=== PATIENT | female | born 1960 | race Two or more races ===

== ENCOUNTER 2018-04-19 18:35 | Inpatient (IN) | payer BC, OTHER ==
[~2018-04-19] VITALS: Ht 165.1 cm; Wt 64.4 kg
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
[2018-04-19 18:51] LABS: BASOPHILS % (AUTO) 0.7 % (0.0-2.0); EOSINOPHILS % (AUTO) 1.9 % (0.0-6.0); HEMATOCRIT 39 % (33-45); HEMOGLOBIN 13.1 g/dL (11.5-14.8); LYMPHOCYTES # (AUTO) 0.3 /CMM (0.8-4.8); LYMPHOCYTES % (AUTO) 9.9 % (20.0-44.0); MEAN CORPUSCULAR HGB CONC 34 g/dl (31.0-36.0); MEAN CORPUSCULAR VOLUME 92 fL (82-100); MONOCYTES # (AUTO) 0.3 /CMM (0.1-1.30); MONOCYTES % (AUTO) 10.2 % (2.0-12.0); NEUTROPHILS # (AUTO) 2.6 /CMM (1.8-8.9); NEUTROPHILS % (AUTO) 77.3 % (43.0-81.0); PLATELET COUNT (AUTO) 82 /CMM (150-450); RED BLOOD CELL COUNT(AUTO) 4.22 MIL/uL (4.0-5.2); WHITE BLOOD COUNT (AUTO) 3.3 K/uL (4.3-11.0)
[2018-04-19] MEDS ORDERED: IV NS 0.9% 1,000 ML BAG IV ONE (19:00)
[2018-04-19] MEDS: LEVETIRACETAM (500MG) 1,000 MG in IV NS 0.9% 100 ML IV SCH (19:02)
[2018-04-19 19:07] LABS: ALANINE AMINOTRANSFERASE 112 U/L (12-78); ALBUMIN 3.1 g/dL (3.4-5.0); ALCOHOL, BLOOD < 3 mg/dL (0-0); ALKALINE PHOSPHATASE 200 U/L (46-116); ASPARTATE AMINOTRANSFERASE 181 U/L (15-37); BILIRUBIN,DIRECT 0.7 mg/dL (0.0-0.2); BILIRUBIN,TOTAL 1.7 mg/dL (0.2-1.0); CALCIUM, SERUM 9.3 mg/dL (8.5-10.1); CARBON DIOXIDE 25 mmol/L (21-32); CHLORIDE 109 mmol/L (98-107); CREATININE 0.7 mg/dL (0.6-1.3); GLUCOSE 120 mg/dL (74-106); POTASSIUM 3.7 mmol/L (3.5-5.1); SODIUM SERUM 143 mmol/L (136-145); TOTAL PROTEIN, SERUM 7.3 g/dL (6.4-8.2); UREA NITROGEN, BLOOD 6 mg/dL (7-18)
--- NOTE | 2018-04-19 19:17 | NUR ---
PT'S BOYFRIEND, SANDEEP, CAN BE REACHED AT [phone] PT'S SON, TOMY, CAN BE REACHED AT [phone]
--- NOTE | 2018-04-19 19:17 | NUR ---
ASSUMED CARE OF PT.
[2018-04-19 19:19] LABS: EOSINOPHILS % (MANUAL) 4 % (0-4); LYMPHOCYTES % (MANUAL) 6 % (16-48); MONOCYTES % (MANUAL) 16 % (0-11.0); NEUTROPHILS % (MANUAL) 74 (42-76)
--- NOTE | 2018-04-19 19:21 | NUR ---
PATIENT RETURNED FROM CT SCAN. NO SEIZURE ACTIVITY NOTED AT THIS TIME. MORE ALERT. OPENING EYES INDEPENDENTLY. VSS.
--- NOTE | 2018-04-19 19:22 | NUR ---
CALLED PT'S BOYFRIEND, SANDEEP. SANDEEP STATED THAT THE PT LIVES AT A RECOVERY HOUSE AT [place]. [address], [place], [place]. SANDEEP HAD A NUMBER; [phone] FOR THE FACILITY. HE DOES NOT KNOW OF ANY ALLERGIES AND STATED THAT SHE TAKES A MED FOR SLEEP AND ZOLOFT. HE'S NOT SURE OF ANY OTHER MEDICATIONS.
--- NOTE | 2018-04-19 19:35 | NUR ---
CARE ENDORSED TO MATT FOR LISBETH.
--- NOTE | 2018-04-19 19:40 | NUR ---
CALLING [facility] AT [phone]. NO ANSWER AT THIS NUMBER.
[2018-04-19] MEDS ORDERED: ZOLOFT (19:42)
[2018-04-19 19:44] LABS: ACETAMINOPHEN < 2 ug/ml (10-30); SALICYLATE < 2.0 mg/dL (2.8-20.0)
--- NOTE | 2018-04-19 20:18 | NUR ---
LUNA SEGURA TO CALL BACK.
--- NOTE | 2018-04-19 20:18 | NUR ---
CALLING REPORT TO LUNA SEGURA.
--- NOTE | 2018-04-19 20:35 | NUR ---
REPORT GIVEN TO LUNA SEGURA
[2018-04-19 20:58] VITALS: BP 101/63
--- NOTE | 2018-04-19 22:20 | NUR ---
DEE RN NOTES [facility] INSTRUCTOR AT BEDSIDE FOR EVALUATION. LANCE, PEST CONTROL PILOT AT [facility] ALSO AT BEDSIDE, WHO WAS ABLE TO CALL THE PATIENT'S SON CELESTE. HISTORY OBTAINED ABLE, LIMITED PATIENT'S SON DOES NOT KNOW COMPLETE HISTORY. LANCE INSTRUCTED TO OBTAIN COMPLETE LIST OF MEDICATION WHEN ABLE. PER LANCE, HE WILL TRY TO GET THE LIST SOMETIME TONIGHT.
[2018-04-19] MEDS ORDERED: ZOLPIDEM TARTRATE 5 MG TABLET PO PRN (22:30)
[2018-04-19] MEDS: ONDANSETRON HCL/PF 4 MG/2 ML VIAL IVP PRN (22:30)
[2018-04-19] MEDS ORDERED: Z GUARD REMEDY 2 OZ OINT TP PRN (22:30)
[2018-04-19] MEDS ORDERED: MAGNESIUM HYDROXIDE 30 ML UDC PO PRN (22:30)
[2018-04-19] MEDS: IV NS 0.9% 1,000 ML IV PRN (22:31)
--- NOTE | 2018-04-19 22:48 | NUR ---
[facility] - [facility] (DEALER CARD ROOM) [phone]
[2018-04-20] VITALS (9 sets, daily range): BP systolic 81–127; BP diastolic 42–73
--- NOTE | 2018-04-20 00:35 | NUR ---
DEE RN NOTES PATIENT WITH COMPLAINT OF 10/10, THROBBING HEADACHE, ASSOCIATED WITH NAUSEA. RAJWINDER [facility] MEDICAL RECORD LIBRARIANS TEACHER MADE AWARE, WITH ORDER FOR MORPHINE 2MG IVP Q4H PRN PAIN. WILL ADMINISTER MEDICATION AND MONITOR CLOSELY
[2018-04-20] MEDS ORDERED: MORPHINE SULFATE INJ 4 MG/ML DISP.SYRIN ONE (00:44)
[2018-04-20] MEDS ORDERED: ONDANSETRON HCL/PF 4 MG/2 ML VIAL IV PRN (01:00)
[2018-04-20] MEDS ORDERED: MORPHINE SULFATE INJ 4 MG/ML DISP.SYRIN IVP PRN (01:00)
--- NOTE | 2018-04-20 04:05 | NUR ---
DEE RN NOTES PATIENT'S BP 82/45, RECHECK 84/51. PATIENT PLACED FLAT IN BED. RAJWINDER BARBA ANNEALING FURNACE TENDER MADE AWARE OF BP READING, WITH ORDER FOR 500ML NS BOLUS X1 NOW. WILL BOLUS ORDERED AND MONITOR CLOSELY.
[2018-04-20] MEDS ORDERED: IV NS 0.9% 500 ML IV ONE (04:30)
--- NOTE | 2018-04-20 04:51 | NUR ---
DEE RN NOTES AFTER 50ML NS BOLUS, BP NOW 98/61. PATIENT EXHIBITS SAME BASELINE MENTAL STATUS, SLIGHTLY IMPROVING
[2018-04-20] MEDS: IV NS 0.9% 1,000 ML IV PRN ×2 (07:03→23:58)
[2018-04-20 07:33] LABS: BASOPHILS % (AUTO) 0.3 % (0.0-2.0); EOSINOPHILS % (AUTO) 0.2 % (0.0-6.0); HEMATOCRIT 36 % (33-45); HEMOGLOBIN 12.2 g/dL (11.5-14.8); LYMPHOCYTES # (AUTO) 0.6 /CMM (0.8-4.8); LYMPHOCYTES % (AUTO) 10.5 % (20.0-44.0); MEAN CORPUSCULAR HGB CONC 34 g/dl (31.0-36.0); MEAN CORPUSCULAR VOLUME 92 fL (82-100); MONOCYTES # (AUTO) 0.5 /CMM (0.1-1.30); MONOCYTES % (AUTO) 8.7 % (2.0-12.0); NEUTROPHILS # (AUTO) 4.2 /CMM (1.8-8.9); NEUTROPHILS % (AUTO) 80.3 % (43.0-81.0); PLATELET COUNT (AUTO) 74 /CMM (150-450); RED BLOOD CELL COUNT(AUTO) 3.95 MIL/uL (4.0-5.2); WHITE BLOOD COUNT (AUTO) 5.2 K/uL (4.3-11.0)
--- NOTE | 2018-04-20 07:35 | NUR ---
DEE RN AM NOTES PT LYING IN BED, DROWSY WITH NC AT 2L, O2 SAT 100%, PT WAS MOANING AND ASKED IF SHE WAS IN ANY PAIN, BUT UNABLE TO VERBALIZE WHERE THE PAIN IS BUT WAS POINTING TO HER HEAD, PT PAIN MEDICATION WAS CAREFULLY GIVEN B/C OF A SUDDEN DROP ON BP PER SENIOR ENLISTED ADVISOR RN REPORT, RR EVEN AND NONLABORED, SR WITH OCCASIONAL PVCs WITH HR 62, IV RH SALINE LOCK 18G, SITE CLEAR, WITH NS RUNNING AT 100ML/HR ORDERED, LEFT AC 18G SALINE LOCK, CHECKED AND FLUSHED, SITE CLEAR, SKIN INTACT, BED LOCKED AND LOW, SIDE RAILS UP AND PADDED, SEIZURE PRECAUTION, WILL MONITOR CLOSELY FOR S/S OF SEIZURE.
[2018-04-20 07:41] LABS: CALCIUM, SERUM 8.2 mg/dL (8.5-10.1); CREATININE 0.5 mg/dL (0.6-1.3); MAGNESIUM 1.4 mg/dL (1.8-2.4); PHOSPHORUS 3.4 mg/dL (2.5-4.9); POTASSIUM 3.6 mmol/L (3.5-5.1)
--- NOTE | 2018-04-20 07:53 | NUR ---
RN NOTE: CALLED AND SPOKE WITH HCIRAG FROM THE PHARMACY AND INFORMED HER ABOUT THE PATIENT'S KEPPRA IV @ 0700. PER CHIRAG, SHE WAS STILL PREPARING THE MEDICATION. AWAITING FOR THE PHARMACY DELIVERY.
[2018-04-20] MEDS: LEVETIRACETAM (500MG) 1,000 MG in IV NS 0.9% 100 ML IV SCH (08:17)
[2018-04-20 08:19] LABS: BAND % (MANUAL) 2 % (0.0-5.0); EOSINOPHILS % (MANUAL) 1 % (0-4); LYMPHOCYTES % (MANUAL) 14 % (16-48); MONOCYTES % (MANUAL) 9 % (0-11.0); NEUTROPHILS % (MANUAL) 74 (42-76)
[2018-04-20] MEDS: THIAMINE HCL 100 MG TABLET PO SCH (08:19)
[2018-04-20] MEDS: Magnesium 1GM/D5W 100ML PREMIX 100 ML IV SCH ×4 (10:34→13:37)
[2018-04-20] MEDS: ACETAMINOPHEN 325 MG TABLET PO PRN (10:46)
[2018-04-20] MEDS: ONDANSETRON HCL/PF 4 MG/2 ML VIAL IVP PRN (11:03)
--- NOTE | 2018-04-20 11:17 | NUR ---
RN NOTE PT [id number], ZOFRAN PER MD ORDER GIVEN, WILL CONTINUE TO MONITOR.
[2018-04-20] MEDS ORDERED: FOLI1TAB16 PO (13:34)
[2018-04-20] MEDS ORDERED: SERT50TA PO (13:34)
[2018-04-20] MEDS ORDERED: THIA100T74 PO (13:34)
[2018-04-20] MEDS ORDERED: RIFA550T PO (13:34)
[2018-04-20] MEDS ORDERED: ONDA4TAB5 PO (13:34)
[2018-04-20] MEDS ORDERED: LEVE500T9 PO (13:34)
[2018-04-20] MEDS ORDERED: TRAZ-182 PO (13:34)
--- NOTE | 2018-04-20 14:00 | NUR ---
DEE RN NOTES PT FAMILY AT BEDSIDE, ASKED PT SON, CELESTE, FOR THE CORRECT NAME AND DATE OF OF THE PT, CALLED AND NOTIFIED ADMISSION COORDINATOR TO MAKE THE NECESSARY CHANGES.
[2018-04-20] MEDS: HYDROCODONE/APAP 5/325MG 1 EACH TABLET PO PRN (14:44)
[2018-04-20] MEDS ORDERED: HYDROMORPHONE INJ 0.5 MG/0.5 ML SYRINGE IV PRN (15:00)
[2018-04-20] MEDS ORDERED: LORAZEPAM INJ 2 MG/ML VIAL IV PRN (15:00)
--- NOTE | 2018-04-20 15:52 | NUR ---
RN NOTE: CALLED AND SPOKE WITH NILAY FROM THE OFFICE OF DR. GUERRERO (NEUROLOGIST) AND MADE HIM AWARE OF THE CONSULTATION BY DAVID GARZA NP TO SEE THE PATIENT.
--- NOTE | 2018-04-20 19:30 | NUR ---
RECEIVED VERBAL ORDERS FROM DR. GUERRERO TO CHANGE PT KEPPRA IV 1000MG BID TO KEPPRA 500MG PO BID. READ BACK ORDERS PERFORMED AND ORDER PLACED INTO PT EMAR.
--- NOTE | 2018-04-20 19:51 | NUR ---
DEE RN PM NOTES ENDORSED PT TO CREATIVE PRODUCER NURSE FOR CONTINUITY OF CARE, PT HAD NO SEIZURE EPISODE DURING THE SHIFT.
[2018-04-20] MEDS: LEVETIRACETAM (250 MG) 250 MG TABLET PO SCH (21:13)
[2018-04-21] VITALS (7 sets, daily range): BP systolic 91–108; BP diastolic 49–77
--- NOTE | 2018-04-21 06:32 | NUR ---
PT REMAINS IN NO ACUTE DISTRESS IN BED. PT DID NOT HAVE ANY SIGNIFICANT CHANGE IN CONDITION DURING SHIFT. ALL NEEDS MET, ALL ORDERS GERSON OUT. WILL ENDORSE CARE TO AM RN FOR CONTINUITY OF CARE.
[2018-04-21 07:05] LABS: ALBUMIN 2.5 g/dL (3.4-5.0); CALCIUM, SERUM 8.1 mg/dL (8.5-10.1); CREATININE 0.5 mg/dL (0.6-1.3); MAGNESIUM 1.7 mg/dL (1.8-2.4); PHOSPHORUS 2.4 mg/dL (2.5-4.9); POTASSIUM 3.3 mmol/L (3.5-5.1)
[2018-04-21 07:06] LABS: BASOPHILS % (AUTO) 0.4 % (0.0-2.0); EOSINOPHILS % (AUTO) 1.3 % (0.0-6.0); HEMATOCRIT 39 % (33-45); LYMPHOCYTES # (AUTO) 0.5 /CMM (0.8-4.8); LYMPHOCYTES % (AUTO) 12.4 % (20.0-44.0); MEAN CORPUSCULAR HGB CONC 34 g/dl (31.0-36.0); MEAN CORPUSCULAR VOLUME 92 fL (82-100); MONOCYTES # (AUTO) 0.4 /CMM (0.1-1.30); MONOCYTES % (AUTO) 10.5 % (2.0-12.0); NEUTROPHILS # (AUTO) 3.1 /CMM (1.8-8.9); NEUTROPHILS % (AUTO) 75.4 % (43.0-81.0); PLATELET COUNT (AUTO) 66 /CMM (150-450); RED BLOOD CELL COUNT(AUTO) 4.24 MIL/uL (4.0-5.2); WHITE BLOOD COUNT (AUTO) 4.1 K/uL (4.3-11.0)
[2018-04-21] MEDS: FOLIC ACID 1 MG TABLET PO SCH (08:19)
[2018-04-21] MEDS: THIAMINE HCL 100 MG TABLET PO SCH (08:19)
[2018-04-21] MEDS: LEVETIRACETAM (250 MG) 250 MG TABLET PO SCH ×2 (08:19→21:54)
[2018-04-21 08:29] LABS: EOSINOPHILS % (MANUAL) 1 % (0-4); LYMPHOCYTES % (MANUAL) 8 % (16-48); MONOCYTES % (MANUAL) 5 % (0-11.0); NEUTROPHILS % (MANUAL) 86 (42-76)
--- NOTE | 2018-04-21 09:15 | NUR ---
received pt from night nurse, alert, follows commands, confused at times, SR, on 2L 02 sat well, lungs clear, no edema, diaper on, no BM, tolerates diet, v/s stable, no pain, pt turns and repositions by herself.
[2018-04-21] MEDS ORDERED: POTASSIUM CHLORIDE 20 MEQ TAB.PRT.SR PO SCH (11:00)
[2018-04-21] MEDS: Magnesium 1GM/D5W 100ML PREMIX 100 ML IV SCH ×2 (11:06→12:12)
[2018-04-21] MEDS ORDERED: K PHOS NEUTRAL 250 MG TABLET PO ONE (16:00)
--- NOTE | 2018-04-21 16:32 | NUR ---
pt resting in the bed, restless, anxious, very confused, getting out of bed, SR, v/s stable, no pain, pt cleaned and changed.
[2018-04-21] MEDS: risperiDONE 1 MG TABLET PO SCH (21:53)
[2018-04-21] MEDS: HYDROCODONE/APAP 5/325MG 1 EACH TABLET PO PRN (22:15)
[2018-04-22] VITALS: BP 112/69
[2018-04-22 04:00] VITALS: BP 106/63
[2018-04-22 06:32] LABS: CALCIUM, SERUM 8.6 mg/dL (8.5-10.1); CREATININE 0.4 mg/dL (0.6-1.3); MAGNESIUM 1.6 mg/dL (1.8-2.4); POTASSIUM 3.9 mmol/L (3.5-5.1)
[2018-04-22 08:00] VITALS: BP 109/55
[2018-04-22] MEDS: THIAMINE HCL 100 MG TABLET PO SCH (08:23)
[2018-04-22] MEDS: risperiDONE 1 MG TABLET PO SCH ×2 (08:23→22:05)
[2018-04-22] MEDS: LEVETIRACETAM (250 MG) 250 MG TABLET PO SCH ×2 (08:23→22:05)
[2018-04-22] MEDS: FOLIC ACID 1 MG TABLET PO SCH (08:24)
[2018-04-22 12:00] VITALS: BP 98/65
[2018-04-22] MEDS: ACETAMINOPHEN 325 MG TABLET PO PRN (12:52)
[2018-04-22] MEDS: Magnesium 1GM/D5W 100ML PREMIX 100 ML IV SCH ×2 (13:57→15:18)
[2018-04-22] MEDS ORDERED: Thiamine 100 MG in IV D5W 50 ML IV SCH (14:00)
[2018-04-22] MEDS ORDERED: THIAMINE HCL 100 MG TABLET PO ONE (14:00)
[2018-04-22 16:00] VITALS: BP 93/53
--- NOTE | 2018-04-22 18:02 | NUR ---
PT SEEN BY NEUROLOGIST
--- NOTE | 2018-04-22 19:11 | NUR ---
PT REMAINS IN NO ACUTE DISTRESS IN BED. PT MORE ALERT AND ABLE TO FOLLOW DIRECTIONS, HAS DIF. SPEAKING . ALL NEEDS MET, ALL ORDERS CARRIED OUT.SAFETY PRECAUTIONS IN PLACE, CALL LIGHT WITHIN REACH
[2018-04-22 20:00] VITALS: BP 100/65
[2018-04-22] MEDS ORDERED: LORAZEPAM 0.5 MG TABLET PO ONE (20:00)
--- NOTE | 2018-04-22 20:00 | NUR ---
RN NOTES seen and examined by Dr. Preciado. updated with patient's behavior. NNO at this time.
[2018-04-23] VITALS: BP 100/62
[2018-04-23 04:00] VITALS: BP 96/63
--- NOTE | 2018-04-23 06:54 | NUR ---
RN CLOSING NOTES Patient with no acute distress observed overnight. patient is observed to withdrawn. no slurring of speech noted, however patient does not engage with conversations and only responds with "yes/no" and dysarthria appreciated. kept patient clean and dry. assisted with ADLs as needed. encouraged with increased PO intake as tolerated. seizure precautions at all times, side rails padded. needs anticipated and met. call light in reach. will endorse accordingly.
--- NOTE | 2018-04-23 07:49 | NUR ---
WINDMILL MECHANIC NOTES RECEIVED PT FROM NOC SHIFT RN. PT ON BED AWAKE AND ALERT. PT ON TELE MONITOR SR. REMAINS IN NO ACUTE DISTRESS IN BED. NO COMPLAINS OF PAIN. BED ON LOWEST POSITION. CALL LIGHT WITHIN REACH. WILL MONITOR CLOSELY.
[2018-04-23 07:50] LABS: CALCIUM, SERUM 8.1 mg/dL (8.5-10.1); CREATININE 0.5 mg/dL (0.6-1.3); MAGNESIUM 1.6 mg/dL (1.8-2.4)
[2018-04-23 08:00] VITALS: BP 114/60
[2018-04-23] MEDS: risperiDONE 1 MG TABLET PO SCH (08:34)
[2018-04-23] MEDS: FOLIC ACID 1 MG TABLET PO SCH (08:35)
[2018-04-23] MEDS: LEVETIRACETAM (250 MG) 250 MG TABLET PO SCH (08:35)
[2018-04-23] MEDS: THIAMINE HCL 100 MG TABLET PO SCH (08:36)
[2018-04-23] MEDS: Magnesium 1GM/D5W 100ML PREMIX 100 ML IV SCH ×2 (10:21→11:28)
[2018-04-23] MEDS: POTASSIUM CHLORIDE 20 MEQ TAB.PRT.SR PO SCH ×3 (10:21→12:32)
--- NOTE | 2018-04-23 11:00 | NUR ---
CLERK TELEVISION PRODUCTION NOTES PT AGITATED AND RESTLESS. AMBULATED TO THE BATHROOM BY HERSELF. CHANGED HER CLOTHES. REMOVED HER TELE MONITOR. WAS ABLE TO CALM HER DOWN FOR NOW. BED LOCKED AND ON LOWEST POSITION. CALL LIGHT WITHIN REACH. WILL MONITOR CLOSELY
--- NOTE | 2018-04-23 11:07 | NUR ---
DOOR PANELER NOTE PT SEEN BY PHYSICAL THERAPIST. Addendum: 04/23/18 at 1118 by FER CORDOVA RN PT AMBULATED WELL WITH THE WALKER. NO COMPLAINS OF PAIN OR SOB. WAS ABLE TO FOLLOW SIMPLE COMMANDS.
[2018-04-23 12:00] VITALS: BP 102/60
--- NOTE | 2018-04-23 15:10 | NUR ---
GLOBAL MOBILITY SPECIALIST NOTES SEEN BY DAVID. OK TO DC TO ACUTE REHAB. DC INSTRUCTIONS GIVEN TO LANCE BOAT ENGINES INSTALLER OF [facility]. HL REMOVED. NO BLEEDING NOTED. BELONGINGS SIGNED. TELE MONITOR REMOVED. PRESCRIPTION GIVEN. INSTRUCTED HOW TO TAKE MEDS AND POSSIBLE SIDE EFFECTS. DIRECTOR OF PSYCHOLOGY ARRANGED PT/OT/ST. PATIENT TAKEN BY THE DRILL PRESS OPERATOR WITH WHEELCHAIR IN STABLE CONDITION.
== END 2018-04-23 15:16 | DRG 100 ==
LOC: ER 18:37 → EDBD 20:24 → TELE-TD 20:24 → TELE1 04-21 18:02
PROVIDERS: ADMIT Nurse Practitioner Acute Care; ATTEND Nurse Practitioner Acute Care
DX: R56.9 Unspecified convulsions (principal); R53.2 Functional quadriplegia; G93.6 Cerebral edema; E44.1 Mild protein-calorie malnutrition; D68.59 Other primary thrombophilia; R47.01 Aphasia; E51.2 Wernicke's encephalopathy; E87.6 Hypokalemia; E83.42 Hypomagnesemia; R74.0 Nonspecific elevation of levels of transaminase and lactic acid dehydrogenase [LDH]; D69.59 Other secondary thrombocytopenia; E88.09 Other disorders of plasma-protein metabolism, not elsewhere classified; K74.60 Unspecified cirrhosis of liver; Z68.23 Body mass index [BMI] 23.0-23.9, adult; Z91.19 Patient's noncompliance with other medical treatment and regimen; F29 Unspecified psychosis not due to a substance or known physiological condition; F10.20 Alcohol dependence, uncomplicated; G93.89 Other specified disorders of brain; I69.320 Aphasia following cerebral infarction; I69.322 Dysarthria following cerebral infarction
CPT/HCPCS: 36415; 70450-TC; 70551-TC; 71045-TC; 72125-TC; 80048-TC; 80053-TC; 80061-TC; 80076-TC; 80177; 82962-TC; 83735-TC; 84100-TC; 85025-TC; 85730-TC; 87081-TC; 95819-TC; G0378; G0480; J1953; J2270; J2405; J3411; J3475; J7030; J7040; J7060